=== PATIENT | male | born 1945 | race Caucasian/White ===

== ENCOUNTER 2016-10-13 07:17 | Day surgery (SDC) | payer OTHER, BC ==
[2016-10-11 15:02] VITALS: BMI 27.1
[2016-10-13 07:43] LABS: BASOPHIL 0.5 % (0-2.0); EOSINOPHIL 3.3 % (0-4.5); MCH 32.7 pg (25.7-33.7); MCHC 34.1 g/dl (32.0-35.9); MEAN PLT VOLUME 9.5 fl (7.5-11.1); NEUTROPHILS 58.8 % (42.8-82.8); PLATELET COUNT 160 K/MM3 (134-434); RDW 12.5 % (11.9-15.9); URINE APPEARANCE CLEAR; URINE BILIRUBIN NEGATIVE (NEGATIVE); URINE BLOOD NEGATIVE (NEGATIVE); URINE COLOR YELLOW; URINE GLUCOSE (UA) NEGATIVE (NEGATIVE); URINE KETONE NEGATIVE (NEGATIVE); URINE LEUK ESTERASE NEGATIVE (NEGATIVE); URINE NITRITE NEGATIVE (NEGATIVE); URINE PROTEIN NEGATIVE (NEGATIVE); URINE UROBILINOGEN NEGATIVE E.U./dl (0.2-1.0); WHITE BLOOD COUNT 9.3 K/mm3 (4.0-10.0)
[2016-10-13 08:07] LABS: INR 1.06 (0.82-1.09); PROTHROMBIN TIME (PATIENT) 11.7 SEC (9.98-11.88)
[2016-10-13 08:10] LABS: ALBUMIN 4.1 g/dl (3.4-5.0); ALK PHOS 76 U/L (45-117); ANION GAP 9 (8-16); BILIRUBIN,TOTAL 1.6 mg/dL (0.2-1.0); CALCIUM 9.3 mg/dL (8.5-10.1); CO2 29 mmol/L (21-32); GLUCOSE,RANDOM 124 mg/dL (74-106); SGOT/AST 23 U/L (15-37); SGPT/ALT 41 U/L (12-78); TOT PROT 7.1 g/dl (6.4-8.2)
[2016-10-13] MEDS ORDERED: LIDOCAINE 1%/EPI 1:100000 (50 ML MULTI DOSE VIAL) ONE (08:18)
[2016-10-13] MEDS ORDERED: BUPIVACAINE HCL/PF 0.5% (5MG/ML) 10 ML VIAL ONE ×2 (08:18→09:08)
--- NOTE | 2016-10-13 09:27 | HP ---
Satellite H - Chief Complaint Chief Complaint: right knee pain - Past Medical History Allergies/Adverse Reactions: Allergies Allergy/AdvReac Type Severity Reaction Status Date / Time JACOB Inhibitors Allergy Severe Itching Verified 10/12/16 14:35 nitroglycerin Allergy Verified 10/13/16 07:34 Penicillins Allergy Verified 10/11/16 15:03 - Current Medications Current Medications: Home Medications Medication Instructions Recorded Losartan Potassium 50 mg PO DAILY 10/11/16 Multivitamins [Multivit ([facility] 1 tab PO DAILY 10/11/16 Formulary)] Oxycodone HCl/Acetaminophen 1 - 2 tab PO Q6H #50 tab MDD 8 10/13/16 [Percocet 5-325 mg Tablet -] Satellite Physical Exam - Physical Examination Vital Signs: Vital Signs Period Temp Pulse Resp BP Sys/Swenson Pulse Ox Last 24 Hr 97.3 F 65 20 123/80 99 General Appearance: Well Nourished, Well Developed, Alert & Oriented x3 ENT: Clear Lung: Normal air movement Heart: Regular rate & rhythm Extremities: Other (right knee- + swelling, + ttp, decr rom, + mcmurrays, nvi MRI + mt) Neurological: Intact, Alert, Oriented Satellite Impression/Plan - Impression/Plan Impression: right knee internal derangement Operative Procedure: right knee arthroscopy Date to be Performed: 10/13/16
[2016-10-13] MEDS ORDERED: BUPIVACAINE HCL/PF 0.5% (5MG/ML) 10 ML VIAL IJ ONE (09:30)
[2016-10-13] MEDS ORDERED: PROPOFOL 20 ML ONE (09:39)
[2016-10-13] MEDS ORDERED: MIDAZOLAM HCL 2 MG/2 ML SINGLE DOSE VIAL ONE (09:39)
[2016-10-13] MEDS ORDERED: KETOROLAC TROMETHAMINE 30 MG/1 ML VIAL ONE (09:51)
--- NOTE | 2016-10-13 10:03 | OP ---
Operative Note - Note: Operative Date: 10/13/16 ([facility]) Pre-Operative Diagnosis: right knee internal derangement Operation: right knee arthroscopy with PMM Post-Operative Diagnosis: Same as Pre-op Surgeon: Darío Pelaez Anesthesiologist/INSTRUCTOR BRIDGE: Jeannine Obando Anesthesia: General, Local Specimens Removed: shavings Estimated Blood Loss (mls): 5 Operative Report Dictated: Yes
[2016-10-13] MEDS ORDERED: oxyCODONE HCL 5 MG TABLET PO PRN (10:25)
[2016-10-13] MEDS ORDERED: ONDANSETRON 4 MG/2 ML VIAL IVPUSH PRN (10:25)
[2016-10-13] MEDS ORDERED: IBUPROFEN 800 MG/8 ML IJ IVPB PRN (10:25)
[2016-10-13] MEDS ORDERED: LACTATED RINGERS SOLUTION 1,000 ML IV SCH (10:30)
[2016-10-13] MEDS ORDERED: LIDOCAINE 1%/EPI 1:100000 (50 ML MULTI DOSE VIAL) INF ONE (10:30)
[2016-10-13 11:18] VITALS: TEMP 97.9
[2016-10-13 12:37] VITALS: BP 101/75; PULSE 62
--- NOTE | 2016-10-13 13:19 | OP ---
DATE OF OPERATION: 10/13/2016 PREOPERATIVE DIAGNOSIS: Internal derangement right knee. POSTOPERATIVE DIAGNOSIS: Internal derangement right knee. PROCEDURE: Arthroscopy right knee, partial medial and lateral meniscectomies. SURGEON: Darío Pelaez MD ANESTHESIA: General with LMA. CLOSURES: 4-0 nylon. COMPLICATIONS: None. CONDITION: To recovery room in stable condition. DESCRIPTION OF PROCEDURE: The patient was taken to the operating room on October 13, 2016. General anesthesia with LMA was administered by the anesthesiologist. The right lower extremity was prepped and draped in the usual sterile fashion. The superolateral and mediolateral infrapatellar portal sites were infiltrated with 1% Xylocaine with epinephrine. Superolateral port was made with 15 blade and blunt trocar. The knee was aspirated and inflated with a cocktail of 10 mL of 1% Xylocaine, 10 mL of 0.5% Marcaine, and 20 mL of arthroscopic saline. Medial and lateral infrapatellar portal was then made with a 15 blade and blunt trocar. The scope was placed in the lateral infrapatellar port and up to suprapatellar pouch. The pouch was visualized to be clean. The medial and lateral gutters were visualized to be clean. The undersurface of the patella and trochlea were visualized to be intact. With valgus stress on the knee, the medial compartment was entered. The medial meniscus had a complex tear its posterior horn. This was debrided back to smooth and stable meniscal tissue with meniscal biter and arthroscopic shaver. The medial femoral condyle was run and found to be basically intact as was the medial tibial plateau with some grade 2 changes here and there. At 90 degrees, the ACL was visualized and probed and found to be intact. In a figure-4 position, lateral compartment was entered. Lateral meniscus was found to have a small flap tear of its midportion. This was debrided back to smooth and stable meniscal tissue with meniscal biter and arthroscopic shaver. The knee was irrigated with copious amounts of irrigation. The lateral and femoral condyle was run and found to be intact as was the lateral tibial plateau. The portals were closed using 4-0 nylon. Prior to closure, 20 mL of 0.5% Marcaine was infused into the knee through the outflow portal prior to pulling the trocar. Tissue was closed with 4-0 nylon. A sterile pressure dressing was applied. The patient was awakened from anesthesia and transferred to recovery in stable condition with no complications. Estimated blood loss negligible. Darlene [id number]
--- NOTE | 2016-10-14 12:58 | PATH ---
Surgical Pathology Report Patient Name: JAMES HO [facility]. Rec. #: [id number] /Age/Gender: 1945 (Age: 71) / M Account: [id number] Location: [facility] Taken: 10/13/2016 Received: 10/13/2016 Reported: 10/14/2016 Physicians: Darío Pelaez M.D. Specimen(s) Received RIGHT KNEE SHAVINGS Clinical History Right knee arthroscopy, right knee tear Final Diagnosis RIGHT KNEE, ARTHROSCOPIC SHAVINGS: FIBROCARTILAGE WITH MYXOID DEGENERATIVE CHANGES, ALONG WITH CRYSTALLINE MATERIAL MORPHOLOGICALLY CONSISTENT WITH PSEUDOGOUT (CPPD). PORTIONS OF SYNOVIUM AND HYALINE CARTILAGE PRESENT. Electronically Signed Syd Sánchez M.D. Gross Description Received in formalin, labeled "right knee shavings," is a 4.2 x 2.5 x 0.3 cm. aggregate of amador-yellow soft tissue fragments. A signs and displays sales representative portion is submitted in one cassette. 10/13/201610/13/2016
== END 2016-10-13 12:37 | disposition home or self-care (01) ==
LOC: JASU-SURG 07:17
PROVIDERS: ATTEND Orthopaedic Surgery
PROC: 0SBC4ZZ Excision of Right Knee Joint, Percutaneous Endoscopic Approach (ICD-10-PCS; 2016-10-13)
PROC: 0SBC4ZZ Excision of Right Knee Joint, Percutaneous Endoscopic Approach (ICD-10-PCS; principal; 2016-10-13 09:30)
DX: M23.200 Derangement of unspecified lateral meniscus due to old tear or injury, right knee (principal); M23.221 Derangement of posterior horn of medial meniscus due to old tear or injury, right knee
CPT/HCPCS: 36415; 80053; 81003; 85025; 85610; 85730; 88304-TC; 94760; 97116-GP